=== PATIENT | female | born 1990 | race Caucasian/White ===

== ENCOUNTER 2018-09-12 15:32 | Emergency (ER) | payer OTHER ==
[~2018-09-12] VITALS: Ht 167.6 cm; Wt 78.0 kg
--- NOTE | 2018-09-12 15:46 | NUR ---
PT BIBFAMILY FOR VB; PT REPORTS X MONDAY. PT AAOX4, PT ON MONITOR, PT PLACED IN ER BED 16, PENDING MD AGARWAL
[2018-09-12] MEDS ORDERED: IV NS 0.9% 1,000 ML BAG IV ONE ×2 (16:00→18:00)
[2018-09-12 16:03] LABS: BASOPHILS # (AUTO) 0.1 /CMM (0.0-0.2); BASOPHILS % (AUTO) 0.7 % (0.0-2.0); EOSINOPHILS % (AUTO) 1.5 % (0.0-6.0); HEMATOCRIT 36 % (33-45); HEMOGLOBIN 12.4 g/dL (11.5-14.8); LYMPHOCYTES % (AUTO) 16.2 % (20.0-44.0); MEAN CORPUSCULAR HGB CONC 34 g/dl (31.0-36.0); MEAN CORPUSCULAR VOLUME 87 fL (82-100); MONOCYTES # (AUTO) 0.8 /CMM (0.1-1.30); MONOCYTES % (AUTO) 6.5 % (2.0-12.0); NEUTROPHILS % (AUTO) 75.1 % (43.0-81.0); PLATELET COUNT (AUTO) 231 /CMM (150-450); RED BLOOD CELL COUNT(AUTO) 4.19 MIL/uL (4.0-5.2)
[2018-09-12 16:09] LABS: CALCIUM, SERUM 10.3 mg/dL (8.5-10.1); CREATININE 0.6 mg/dL (0.6-1.3); POTASSIUM 3.4 mmol/L (3.5-5.1)
[2018-09-12] MEDS ORDERED: ACETAMINOPHEN ES 500 MG TABLET ONE (16:37)
--- NOTE | 2018-09-12 16:40 | NUR ---
CALLED DR LEONELA JUAREZ ([phone]). NO ANSWER, LEFT VOICEMAIL ASKING FOR A CALL BACK FOR DR TO DR MINER.
[2018-09-12] MEDS ORDERED: MORPHINE SULFATE INJ 4 MG/ML DISP.SYRIN ONE (16:59)
[2018-09-12] MEDS ORDERED: ONDANSETRON HCL/PF 4 MG/2 ML VIAL ONE (16:59)
[2018-09-12] MEDS ORDERED: ACETAMINOPHEN 325 MG TABLET PO ONE (17:00)
[2018-09-12] MEDS ORDERED: METHYLERGONOVINE MALEATE 0.2 MG/ML AMPUL ONE (17:06)
--- NOTE | 2018-09-12 17:20 | NUR ---
CLARIFIED METHERGINE ORDER WITH PHARMACY, PER EVELIN PHARMACIST, METHERGINE ORDER TO BE GIVEN IM OR PO UNLESS LIFE THREATNING EMERGENCY CAN BE GIVEN IVP
--- NOTE | 2018-09-12 17:21 | NUR ---
HARSH BECK AWARE OF PHARMACY RECOMMENDATION
[2018-09-12] MEDS ORDERED: ONDANSETRON HCL/PF - ER 4 MG/2 ML VIAL IV ONE (17:30)
[2018-09-12] MEDS ORDERED: METHYLERGONOVINE MALEATE 0.2 MG/ML AMPUL IV ONE (17:30)
[2018-09-12] MEDS ORDERED: METHYLERGONOVINE MALEATE 0.2 MG/ML AMPUL IM ONE (17:30)
[2018-09-12] MEDS ORDERED: MORPHINE SULFATE INJ 10 MG/ML DISP.SYRIN IV ONE (17:30)
[2018-09-12 17:52] LABS: HEMOGLOBIN 9.7 g/dL (11.5-14.8)
--- NOTE | 2018-09-12 19:30 | NUR ---
REPORT GIVEN TO TYRESE CARRANZA HAILEY
[2018-09-12] MEDS ORDERED: POTASSIUM CHLORIDE 20 MEQ TAB.PRT.SR PO ONE ×2 (19:59→20:00)
[2018-09-12 20:12] VITALS: BP 106/70
--- NOTE | 2018-09-12 20:12 | NUR ---
Patient discharged to home in stable condition. Written and verbal after care instructions given. Patient verbalizes understanding of instruction. IV removed. Catheter intact and site benign. Pressure and 4x4 applied to site. No bleeding noted. Pt ambulatory with steady gait.
== END 2018-09-12 20:13 | disposition home or self-care (01) ==
LOC: ER 15:34
DX: O03.9 Complete or unspecified spontaneous abortion without complication (principal); O02.0 Blighted ovum and nonhydatidiform mole; E87.6 Hypokalemia; D64.9 Anemia, unspecified; R42 Dizziness and giddiness; I95.9 Hypotension, unspecified
CPT/HCPCS: 36415; 76805; 80048; 84702; 85025; 85027; 96361; 96372; 96374; 96375; 99291; A6403 ×2; J2210; J2270; J2405; J7030